=== PATIENT | female | born 1940 | race Caucasian/White ===

== ENCOUNTER 2016-11-16 11:42 | Emergency (ER) | payer MEDICARE, OTHER ==
[2016-11-16 12:18] LABS: HEMOGLOBIN 12.3 gm/dl (12.3-15.3); RED BLOOD COUNT 3.84 M/UL (4.00-5.10); WHITE BLOOD COUNT 9.3 K/UL (4.5-11.0)
[2017-03-14] MEDS ORDERED: PHENOBARBITAL16.2 MG PO (04:09)
[2017-03-14] MEDS ORDERED: LISINOPRIL5 MG PO (04:09)
[2017-03-14] MEDS ORDERED: CETIRIZINE HCL10 MG PO (04:11)
[2017-03-14] MEDS ORDERED: FLONASE 0.05% N16 GM INH (04:11)
[2017-03-14] MEDS ORDERED: PRAZOSIN HCL5 MG PO (04:12)
[2017-03-14] MEDS ORDERED: LEVOTHYROXINE75 MCG PO (04:13)
[2017-03-14] MEDS ORDERED: GLUCOPHAGE 500500 MG PO (04:13)
[2017-03-14] MEDS ORDERED: SIMVASTATIN40 MG PO (04:13)
== END 2016-11-16 14:40 | disposition home or self-care (01) ==
LOC: ER1 11:42
PROVIDERS: Emergency Medicine
DX: J18.9 Pneumonia, unspecified organism (principal); I44.7 Left bundle-branch block, unspecified; N39.0 Urinary tract infection, site not specified; R03.0 Elevated blood-pressure reading, without diagnosis of hypertension; J45.909 Unspecified asthma, uncomplicated
CPT/HCPCS: 36415; 71010; 80053; 81001; 82550; 82553; 83874; 84484; 85025; 93005; 99284

== ENCOUNTER → 2016-12-15 | Outpatient (CLI) | payer MEDICARE, OTHER ==
[~2016-12-15] MED LIST: CETIRIZINE HCL10 MG PO; FLONASE 0.05% N16 GM INH; GLUCOPHAGE 500500 MG PO; LEVOTHYROXINE75 MCG PO; LISINOPRIL5 MG PO; PHENOBARBITAL16.2 MG PO; PRAZOSIN HCL5 MG PO; SIMVASTATIN40 MG PO
== END ==
LOC: HEART 5 15:05
DX: I49.1 Atrial premature depolarization (principal); I44.7 Left bundle-branch block, unspecified

== ENCOUNTER → 2016-12-26 | Outpatient (CLI) | payer MEDICARE, OTHER | LOC: KOH-I 09:00 | DX: R14.0 Abdominal distension (gaseous) (principal); R11.0 Nausea; K76.0 Fatty (change of) liver, not elsewhere classified | CPT/HCPCS: 76705 ==

== ENCOUNTER → 2017-01-27 | Outpatient (CLI) | payer MEDICARE, OTHER | LOC: LAB 11:12 | DX: J45.909 Unspecified asthma, uncomplicated (principal); F41.9 Anxiety disorder, unspecified; E66.9 Obesity, unspecified | CPT/HCPCS: 36415; 82785 ==

== ENCOUNTER → 2017-01-27 | Outpatient (CLI) | payer MEDICARE, OTHER | LOC: HEART 5 09:40 | DX: R06.02 Shortness of breath (principal) | CPT/HCPCS: 94060 ==